=== PATIENT | female | born 1960 | race Caucasian/White ===

== ENCOUNTER 2019-01-09 11:58 | Day surgery (SDC) | payer OTHER, SELFPAY ==
[2019-01-06 12:20] VITALS: BMI 30.7
[2019-01-09] VITALS (16 sets, daily range): BP systolic 127–155; BP diastolic 68–94; PULSE 75–92; RESP 8–20; TEMP 36.2–36.6; O2SAT 94–98; BMI 30.7; BMI 32.1
[2019-01-09] MEDS: LACTATED RINGERS 1,000 ML 100 ML IV ×2 (12:43→16:00)
--- NOTE | 2019-01-09 13:20 | PM.PREOP ---
Pre-operative Note Interval Note History & Physical reviewed/Exam performed by Physician: Yes Changes to H&P: No H&P completed within 30 days and has changed as indicated here:: 01/06/19 out pt note
[2019-01-09] MEDS: CEFAZOLIN 2 GM/100 ML FROZ.PIGGY IV (13:35)
--- NOTE | 2019-01-09 13:58 | SUR.OPER ---
Lithotomy on padded OR bed, head on pillow, arms secured on padded arm boards at <90 degrees abduction. Legs secured in padded yellow fins stirrups.
[2019-01-09] MEDS: BUPIVACAINE 0.5% W/ EPI (PF) VIAL 30 ML INJ (14:02)
--- NOTE | 2019-01-09 14:41 | PM.OP.1 ---
Operative Date/Time/Diagnoses Date of procedure: 01/09/19 Time of procedure: 14:41 Pre-op diagnosis: Stress urinary incontinence and cystocele Post-op diagnosis: same Procedure & Clinicians Procedure: Anterior repair and TVT exact retropubic suburethral sling Same procedure as scheduled: Yes Indications: Stress urinary incontinence and symptomatic cystocele without rectocele or significant uterine prolapse Surgeon: Tiffanie Lopez Click Yes if Unassisted: Yes Anesthesia Type: General Operative Notes Findings: Mild cystocele with hypermobile urethra Closure Type: primary Specimen(s): none sent Prosthetic devices, grafts, tissues, transplants, or devices: TVT exact suburethral sling Estimated Blood Loss (mL): 50 Blood products transfused: none Procedure in detail: Patient was brought to the operating room where she underwent general anesthesia. She was placed in yellowfin stirrups. A check system was reviewed. 2 g of Ancef were in prior to beginning case. Warming was in place. Pulsatile stockings were in place and functional. She was prepped and draped in the usual sterile fashion. The area under the cystocele was injected with dilute solution of lidocaine. An incision was made over the cystocele with the scalpel. The incision was dissected out laterally. The cystocele caliber was decreased with a pursestring suture of 2 0 Vicryl suture. Plicating sutures were performed over the cystocele with 0 Vicryl suture. The vaginal incision was closed with 2 0 Vicryl suture. Next the area of the mid urethra was injected with lidocaine. An incision was made over the mid urethra with a scalpel. The incision was extended laterally. A Benjamin catheter was placed with a catheter guide in place. The suprapubic exit sites were marked with a marking pen. The needles attached to the sling were placed from the bottom up and left in place. The catheter was removed and 300 mL of saline were placed in the bladder and cystoscopy was performed. A 70?? scope followed by a 12?? scope were used to look at the bladder and the urethra was no damage apparent with placement of the needles. Both ureters were seen to be functional. The graft was brought up loosely under the mid urethra. With sharp pressure against the bladder there was some leakage of urine. The plastic sheath was removed. The graft was cut under the skin of the suprapubic sites. The vaginal incision was closed with 2-0 Vicryl suture. Vaginal packing was placed. Patient went to recovery room in good condition. Counts of instruments and sponges were correct. Complications: none Condition: stable Disposition: Acute Care Plan for aftercare: Will remove the vaginal packing a Benjamin catheter in a.m. and check for postvoid residual home after her postvoid residual check
[2019-01-09] MEDS: fentaNYL 100 MCG/2 ML INJ 50 MCG IV ×2 (14:42→14:57)
--- NOTE | 2019-01-09 15:13 | SUR.PHASEI ---
dentures returned to patient (upper); tolerating sips of water well, Pain 1-2; will transport soon, VSS
--- NOTE | 2019-01-09 15:37 | SUR.PHASEI ---
1526 to room 229 , bed down and locked, call light within reach, SCDs on. Clothes in closet. report given, no questions from patient or staff. drowsy, oriented, skin warm and dry, resp even and regular. Report given.
[2019-01-09] MEDS: KETOROLAC 30 MG/ML VIAL IV (18:06)
--- NOTE | 2019-01-09 19:10 | PC.NURSE ---
Addendum entered by Iveth Key R.N. 01/09/19 22:04: Pt med at 5 w/oxycodone w/fair relief. IVF continue as per orders. Abd dsg are saturated w/no leakage. Benjamin cath patent clear urine. Call light w/in reach, bed alarm on for pt safety. Continue w/plan of care. Original Note: Pt awake, visiting w/family. IVF infusing via pump as per orders. Abdomen soft, tender Benjamin cath patent clear yellow urine. Med at 1800 w/toredol for discomfort w/good relief. Call light w/in reach, family in room.
[2019-01-09] MEDS: HYDROCODONE/ACET 5/325 TABLET 2 TAB PO (20:48)
[2019-01-10] VITALS: BP 118/60; PULSE 94; RESP 18; TEMP 36.4; O2SAT 95
[2019-01-10] MEDS: LACTATED RINGERS 1,000 ML 100 ML IV (00:17)
[2019-01-10] MEDS: HYDROCODONE/ACET 5/325 TABLET 2 TAB PO ×4 (00:18→13:17)
--- NOTE | 2019-01-10 02:36 | PC.NURSE ---
Addendum entered by Nora Luu R.N. 01/10/19 06:21: Dr Lopez notified of kennedy removal and will be in to removing packing. Original Note: Addendum entered by Nora Luu R.N. 01/10/19 06:11: Misinterpreted orders and d/c'd kennedy but not packing this AM. MD will be notified. Original Note: Shift Note: Received pt from evening shift. During assessment found lower abdominal dressings to be completely saturated and leaking into groin folds. Tegaderm had come loose and was no longer occlusive. This RN wiped up excess serosanginous fluids from pt and removed tegaderm dressing. Replaced both dressings with dry folded 2x2's and covered with individual tegaderms. Pt tolerated well.
[2019-01-10 03:55] VITALS: BP 117/57; PULSE 86; RESP 17; TEMP 36.4; O2SAT 96
[2019-01-10 05:51] LABS: Add Manual Diff / Slide Review NO; Basophils Absolute Auto 0 /uL (0-100); Basophils Percent Auto 0.2 % (0-2); Eosinophils Absolute Auto 0 /uL (0-450); Hematocrit 38.2 % (36-46); Hemoglobin 12.4 g/dL (12.0-16.0); Lymphocytes Absolute Auto 1200 /uL (1100-4500); Lymphocytes Percent Auto 8.4 % (25-40); Mean Corpuscular HGB Conc 32.5 % (30-36); Mean Corpuscular Hemoglobin 26.7 PG (26-34); Mean Corpuscular Volume 82.1 fL (80-100); Monocytes Absolute Auto 900 /uL (0-900); Monocytes Percent Auto 6.3 % (3-14); Neutrophils Absolute Auto 12600 /uL (1500-7000); Neutrophils Percent Auto 85.1 % (50-75); Platelet Count 263 X10^3/uL (150-400); Red Blood Cell Count 4.66 X10^6/uL (4.0-5.2); Red Cell Distribution Width 13.4 % (11.6-14.8); White Blood Cell Count 14.8 X10^3/uL (4.5-11.0)
[2019-01-10 08:00] VITALS: BP 127/74; PULSE 79; RESP 16; TEMP 36.7; O2SAT 97
--- NOTE | 2019-01-10 08:56 | PM.DS.1 ---
History of Present Illness Date Patient Seen: 01/10/19 Time Patient Seen: 08:56 Chief complaint: [id number] ANTERIOR REPAIR/TVT EXACT SLING Narrative: Patient is postoperative day #1 anterior repair, TVT exact retropubic suburethral sling for stress urinary incontinence and symptomatic cystocele. the patient is sore but otherwise is pain is okay. She was able to urinate after removal of her Benjamin catheter. The patient's suprapubic dressings are dry. The patient's vaginal packing was removed and had appropriate amount blood on it. Discharge Providers Discharge Date: 01/10/19 Primary care physician: Kevin Jaramillo DO Discharge provider: Tiffanie Lopez MD Summary Discharge Diagnosis: Symptomatic cystocele and stress urinary incontinence Hospital Course: patient underwent a anterior repair and TVT exact retropubic suburethral sling on 01/09/2019. Patient did well postoperatively. She eventually did pass her bladder trial with less than 100 cc on postvoid residual. Status at Discharge Functional status at discharge: independent ambulation Overall status at discharge: patient is progressing back to baseline Exam Vital Signs (past 8 hours): - 01/10/19 03:55 01/10/19 08:00 Temperature 97.6 F 98.0 F Pulse Rate 86 79 Respiratory Rate 17 16 Blood Pressure 117/57 L 127/74 Pulse Oximetry 96 97 Oxygen Delivery Method Room Air Narrative Exam Narrative: Abdomen is soft, nontender. Suprapubic dressings are dry. Appropriate vaginal bleeding. Extremities nontender Objective Labs Result Diagrams: 01/10/19 04:58 Labs: Laboratory Results - last 24 hr 01/10/19 04:58 WBC 14.8 H RBC 4.66 Hgb 12.4 Hct 38.2 MCV 82.1 MCH 26.7 MCHC 32.5 RDW 13.4 Plt Count 263 Neut % (Auto) 85.1 H Lymph % (Auto) 8.4 L [place] % (Auto) 6.3 Eos % (Auto) 0.0 L Baso % (Auto) 0.2 Neut # (Auto) 57764 H Lymph # (Auto) 1200 [place] # (Auto) 900 Eos # (Auto) 0 Baso # (Auto) 0 Discharge Plan Discharge Plan Patient Disposition: Home Discharge Med Rec/Prescriptions Prescriptions: Continued estradiol 0.01 % (0.1 mg/gram) cream See Rx Instructions VAG DAILY Qty: 42.5 RF: 0 omeprazole 20 mg capsule,delayed release(DR/EC) 20 mg PO .COMPLEX PRN (Reason: GI Upset) RF: 0 albuterol sulfate 90 mcg/actuation HFA aerosol inhaler 1 puff INHALATION Q6H PRN (Reason: SOB) RF: 0 hydrocodone-acetaminophen 5-325 mg tablet 2 tab PO Q4-6H PRN (Reason: pain) Qty: 30 RF: 0 Follow up/Referrals: Kevin Jaramillo DO [Primary Care Provider] - Tiffanie Lopez MD [Physician] - 01/25/19 10:30 am ( appointment already made) Discharge Orders: Discharge (Order); Ordered 01/10/19 Ordered By: Tiffanie Lopez Provider Discharge Instructions Diet: Regular Activity: do not lift over 20 lb Skin/Wound/Dressing Care Report to your healthcare provider any signs of infection, such as:: chills, fever and increased pain Dressing: remove suprapubic dressings this evening Discharge Data Primary Care Provider: Kevin Jaramillo Attending Provider: Tiffanie Lopez Discharges patient from system. Discharge Date/Time: 01/10/19 13:45
--- NOTE | 2019-01-10 09:02 | P.DS_ITS ---
History of Present Illness Date Patient Seen: 01/10/19 Time Patient Seen: 08:56 Chief complaint: [id number] ANTERIOR REPAIR/TVT EXACT SLING Narrative: Patient is postoperative day #1 anterior repair, TVT exact retropubic suburethral sling for stress urinary incontinence and symptomatic c ystocele. the patient is sore but otherwise is pain is okay. She was able to urinate after removal of her Benjamin catheter. The patient's suprapubic dressings are dry. The patient's vaginal packing was removed and had appropriate amount blood on it. Discharge Providers Discharge Date: 01/10/19 Primary care physician: Kevin Jaramillo, Discharge provider: Tiffanie Lopez MD Summary Discharge Diagnosis: Symptomatic cystocele and stress urinary incontinence Hospital Course: patient underwent a anterior repair and TVT exact retropubic suburethral sling on 01/09/2019. Patient did well postoperatively. She eventually did pass her bladder trial with less than 100 cc on postvoid residual. Status at Discharge Functional status at discharge: independent ambulation Overall status at discharge: patient is progressing back to baseline Exam Vital Signs (past 8 hours): - 01/10/19 03:55 01/10/19 08:00 Temperature 97.6 F 98.0 F Pulse Rate 86 79 Respiratory Rate 17 16 Blood Pressure 117/57 L 127/74 Pulse Oximetry 96 97 Oxygen Delivery Method Room Air Narrative Exam Narrative: Abdomen is soft, nontender. Suprapubic dressings are dry. Appropriate vaginal bleeding. Extremities nontender Objective Labs Result Diagrams: 01/10/19 04:58 Labs: Laboratory Results - last 24 hr 01/10/19 04:58 WBC 14.8 H RBC 4.66 Hgb 12.4 Hct 38.2 MCV 82.1 MCH 26.7 MCHC 32.5 RDW 13.4 Plt Count 263 Neut % (Auto) 85.1 H Lymph % (Auto) 8.4 L [place] % (Auto) 6.3 Eos % (Auto) 0.0 L Baso % (Auto) 0.2 Neut # (Auto) 85502 H Lymph # (Auto) 1200 [place] # (Auto) 900 Eos # (Auto) 0 Baso # (Auto) 0 Discharge Plan Discharge Plan Patient Disposition: Home Discharge Med Rec/Prescriptions Prescriptions: Continued estradiol 0.01 % (0.1 mg/gram) cream See Rx Instructions VAG DAILY Qty: 42.5 RF: 0 omeprazole 20 mg capsule,delayed release(DR/EC) 20 mg PO .COMPLEX PRN (Reason: GI Upset) RF: 0 albuterol sulfate 90 mcg/actuation HFA aerosol inhaler 1 puff INHALATION Q6H PRN (Reason: SOB) RF: 0 hydrocodone-acetaminophen 5-325 mg tablet 2 tab PO Q4-6H PRN (Reason: pain) Qty: 30 RF: 0 Follow up/Referrals: Kevin Jaramillo DO [Primary Care Provider] - Tiffanie Lopez MD [Physician] - 01/25/19 10:30 am ( appointment already made) Discharge Orders: Discharge (Order); Ordered 01/10/19 Ordered By: Tiffanie Lopez Provider Discharge Instructions Diet: Regular Activity: do not lift over 20 lb Skin/Wound/Dressing Care Report to your healthcare provider any signs of infection, such as:: chills, fever and increased pain Dressing: remove suprapubic dressings this evening Discharge Data Primary Care Provider: Kevin Jaramillo Attending Provider: Tiffanie Lopez Discharges patient from system. Discharge Date/Time: 01/10/19 13:45
[2019-01-10 12:32] VITALS: BP 126/51; PULSE 72; RESP 16; TEMP 36.5; O2SAT 98
--- NOTE | 2019-01-10 13:04 | CM.DANOTE ---
Discharge Planning/Care Management DCP: assessment: case received, EMR reviewed, d/c to home order noted and met with pt. Introduced self and role. Pt is sitting in bed, eating lunch. Multiple family members in the room. Pt is a 58 year old female who admitted yesterday to care of Dr. Lopez for a planned gynecological surgery. She says she is aware of the d/c order for today but she has not seen the nurse (MERCEDES Salguero) yet. Spoke then with MERCEDES Salguero. She states that Dr. Lopez did tell her she was putting the d/c order in but that the pt would need to void first. She noted a kennedy catheter may have to be placed and at this point it is unclear if pt will go home today. Noemy has now reported that pt did void and with minimal urine left with PVR. She has updated Dr. Lopez by phone and pt will d/c home as soon as all paperwork is completed. CM Discharge Assessment Start: 01/10/19 13:00 Freq: Status: Active Protocol: Document 01/10/19 13:02 ITV (Rec: 01/10/19 13:03 ITV [id number]) Discharge Planning Assessment Advance Directives? No Advance Directives on File No History Provided By Patient Medical Record Household Members none Independent with ADL's Yes Is patient alert and oriented? Yes Review Status In Process Next Review Type Continued Stay Review Document 01/10/19 13:03 ITV (Rec: 01/10/19 13:03 ITV [email or web address]) Discharge Planning Assessment Advance Directives? No Advance Directives on File No History Provided By Patient Medical Record Household Members none Independent with ADL's Yes Is patient alert and oriented? Yes Review Status In Process Next Review Type Continued Stay Review Pre-Anesthesia Assessment Start: 01/06/19 12:20 Freq: Status: Complete Protocol: Document 01/06/19 12:20 CAB (Rec: 01/06/19 12:27 CAB [id number]) Pre-Anesthesia Assessment Patient Information Reviewed Via Chart Review Seen Specialist in Last 12 Months Yes Specialist Seen Diesel Stationary Engineer Primary Language Iranian Cloth Burler Required No Height 170.18 cm Weight 88.904 kg Body Mass Index (BMI) 30.7 Barriers to Learning None Hx Anesthesia Reactions No Anesthesia Review Requested No Electrical & Instrumentation Supervisor No Smoking Status Former smoker Pain Present Pain Reported History of Falling (Recent or History of No ) Patient is completely paralyzed or No completely immobile Mental Status Oriented to own ability Hx Sleep Apnea Yes: Unknown if uses CPAP Currently Taking a Beta Tanya No Has a Mechanic Foreman No Cardiac Testing No Hx Pacemaker/ICD No Pacemaker Rep Required? No Cardiac Clearance Received Not Applicable Bladder Pattern Incontinent Urinary Catheter Present No Hx Urinary Self Catheterization No Diabetes No Patient No Lactating No Patient Discharge Plan Description Return Home
--- NOTE | 2019-01-10 13:31 | PC.NURSE ---
1300 Pt voided 400 ml urine, then post void bladder scanned for [address] Lopez notified, states to go ahead and DC Pt to home.
== END 2019-01-10 13:45 | disposition home or self-care (01) ==
LOC: OR 12:01 → AC 15:39
PROVIDERS: PCP Emergency Medicine; Visit Provider Specialist
PROC: (CPT 57240; principal; 2019-01-09 13:30)
PROC: 0TSD0ZZ Reposition Urethra, Open Approach (ICD-10-PCS; CPT 57240; 2019-01-09 13:30)
DX: N39.3 Stress incontinence (female) (male) (principal); N81.10 Cystocele, unspecified; N36.41 Hypermobility of urethra; Z87.891 Personal history of nicotine dependence
CPT/HCPCS: 57240; 57288; 36415; 85025; 94762; C1771; J0690; J1100; J1885; J2250; J2405; J2704; J3010

== ENCOUNTER → 2019-04-06 15:24 | Outpatient (CLI) | payer OTHER, SELFPAY ==
[2019-01-09 17:28] VITALS: BMI 32.1
--- NOTE | 2019-04-06 15:27 | DI.RAD.S_ITS ---
PROCEDURE: XR ANKLE RT MIN 3V INDICATIONS: twisted ankle TECHNIQUE: 3 views of the ankle were acquired. COMPARISON: None. FINDINGS: Bones: No fractures or dislocations. Ankle mortise is normally aligned. No suspicious bony lesions. Soft tissues: No tibiotalar joint effusion. Achilles tendon appears normal except for a small amount of calcific tendinitis at the insertion at the posterior calcaneus. IMPRESSION: Normal for age, source of current ankle pain after trauma symptoms is not seen. Note is made of a small amount of calcific tendinitis at the Achilles tendon insertion on the posterior calcaneus. Dictated by: Jude Arita M.D. on 04/06/2019 at 16:46 Approved by: Jude Arita M.D. on 04/06/2019 at 16:47
== END ==
PROVIDERS: Visit Provider Physician Assistant
DX: S93.401A Sprain of unspecified ligament of right ankle, initial encounter (principal); M76.61 Achilles tendinitis, right leg; X58.XXXA Exposure to other specified factors, initial encounter
CPT/HCPCS: 73610

== ENCOUNTER 2019-06-16 07:30 | Outpatient (RCR) | payer OTHER, SELFPAY ==
[2019-01-09 17:28] VITALS: BMI 32.1
--- NOTE | 2019-04-10 09:36 | PT.OIE ---
Current Diagnoses Other female genital prolapse (04/10/19) Unspecified urinary incontinence (04/10/19) Past Medical History (Last Updated 01/06/19 @ 12:26 by Klarissa Girard RN) Cystocele (Acute) Asthma (Chronic ~1997) Chronic back pain (Chronic) Foot pain (Chronic) Headache (Chronic) Herpes (Chronic ~1998) Recurrent sinusitis (Chronic) Seasonal allergies (Chronic ~1997) Skin cancer (Chronic) Sleep apnea (Chronic) Tinnitus (Chronic ~2012) Chicken pox (Resolved) Measles (Resolved) Mumps (Resolved) Past Surgical History (Last Updated 12/14/18 @ 20:30 by Melinda Griffith) Anesthesia (Resolved) Deviated septum (Resolved ~1979) History of foot surgery (Resolved) History of tubal ligation (Resolved ~1985) Provider Visit Care Team Role Provider Type Maria Teresa Woodward DO Primary Care Provider Non-Staff Specialty: Medical Address: [address] [place] [address], [phone] Email: Tiffanie Lopez MD Attending Provider Physician Specialty: LINOTYPE MACHINIST Address: [address] [place] [address], [id number] Email: [email or web address] Physical Therapy Initial Evaluation PT-OP-A Visit Information Start: 04/10/19 06:44 Freq: Status: Active Protocol: Document 04/10/19 07:30 AMB (Rec: 04/11/19 07:29 AMB [email or web address]) Out-Patient Physical Therapy Visit Information Visit Information Visit Type Initial Evaluation Visit Start Time 07:30 Visit Stop Time 08:15 Total Visit Minutes 45 Visit Number 1 Evaluation Information Evaluation Date 04/10/19 PT-OP-B Current Condition Start: 04/10/19 06:44 Freq: Status: Active Protocol: Document 04/10/19 07:30 AMB (Rec: 04/11/19 07:29 AMB [email or web address]) Current Condition History of Current Condition Onset Date 01/09/19 Current Complaints urinary incontinence s/p anterior repair urethral sling History of Current Condition Sherine had been told she had a cystocele years ago, but began to notice more pressure and felt it was painful. She has a history of 4 children all vaginal deliveries with some amount of tearing with her first, she is unsure how much. She is post menopausal now, and denies sexual activity for the past 20 years . 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 She tends to hover on public toilets (including the toilet at work). She had surgery on 01/09/19, and since that time her pain and pressure have improved significanty. She is does feel that it is difficult to fully void now, and has noticed more leaking when she stands up from the toilet. She feels that it takes about 30 seconds to fully void her bladder and that at the end it is a trickle that keeps coming. She does not want to wait a full 30 seconds to void her bladder. Prior Treatments and Tests Prior pessary, then had surgery with Dr. Lopez- anterior vaginal repair with TVT exact retropubic suburethral sling. Treatment Goals Patient/Caregiver Goals Void urine without leaking, be able to exercise without fear of prolapse. Personal Factors Other Personal Factors That May Effect History of back pain Therapy/Recovery PT-OP-C Subjective Start: 04/10/19 06:44 Freq: Status: Active Protocol: Document 04/10/19 07:30 AMB (Rec: 04/11/19 07:29 AMB [email or web address]) Patient Questionnaires Pelvic Pain and Urgency/Frequency Patient Symptom Scale Pelvic Pain Score 10 PT-OP-I Pelvic Floor Start: 04/10/19 06:44 Freq: Status: Active Protocol: Document 04/10/19 07:30 AMB (Rec: 04/10/19 08:47 AMB [email or web address]) Pelvic Floor Assessment Urine Pelvic Floor Surgery Yes Urinary Symptoms Urge Sensation Prolapse Incomplete Emptying Leakage Size Small Other Leakage Causes moving from sit to stand, phyllis after just voiding urine Leaks Per Day 3 Voiding Frequency 5-8 Nocturia 2 Urine Pad Type Panty Liner Pelvic Clock Pelvic Clock 3-6 Tightness Pelvic Clock 6-9 Tightness Pelvic Clock Other Redness at vestibule. Small scar at perineum with tightness and tenderness. No significant tenderness with palpation at obteratur internus or levator ani bilaterally. Prolapse Cystocele Grade 1 Prolapse Comments Difficulty with bearing down. Perineal Descent Resting Absent Contraction Ability Voluntary Contraction Weak Voluntary Relaxation Weak Manual Muscle Testing Left 1 Manual Muscle Testing Right 1 Manual Muscle Testing Anterior 1 Manual Muscle Testing Posterior 3 Comments Pelvic Floor Comments Sherine with an easier time jovan posterior pelvic floor. PT-OP-T Assessment and Plan Start: 04/10/19 06:44 Freq: Status: Active Protocol: Document 04/10/19 07:30 AMB (Rec: 04/15/19 09:36 AMB [email or web address]) Physical Therapy Assessment Rehab Potential Rehabilitation Potential Good Evaluation Complexity Number of Personal Factors/Comorbidities 1-2 Number of Body Systems Impaired 1-2 Clinical Presentation at Evaluation Stable Impairments Impairments Functional Activities Strength Goals Two Impairment incontinence Short Term Goal (STG) Sherine will fully void her bladder so that she does not leak upon standing from the toilet. STG Duration 4 weeks Turpentiner Goal (LTG) Sherine will walk to the toilet calmly without leaking, and fully relax her pelvic floor before voiding urine. LTG Duration 8 weeks One Impairment pelvic floor strength Short Term Goal (STG) Sherine will improve her pelvic floor strength to at least 3/ 5 in all planes. STG Duration 4 weeks Fpc Goal (LTG) Sherine will perform a pelvic floor contraction in standing so that she can safely lift 20 pounds. LTG Duration 8 weeks Assessment Summary Assessment Sherine presents to physical therapy s/p A&P repair and urethral sling. This significantly improved her symptoms of prolapse, but she is having a harder time fully voiding urine. This is exacerbated by her tendency to hover over the toilet at work , not allowing her pelvic floor to fully relax. Sherine will benefit from physical therapy for instruction in both behavioral changes to make sure she is fully voiding her bladder, and then pelvic floor strengthening, especially considering her goal of returning to exercise. Physical Therapy Plan Frequency and Duration Frequency of Treatment 1x/Week Duration of Treatment 8 weeks Plan of Care Start Date 04/10/19 Plan of Care End Date 06/05/19 Therapeutic Interventions Therapeutic Interventions Home Exercise Program Manual Therapy Neuromuscular Re-education Self-Care/Home Management Therapeutic Activities Therapeutic Exercises Modalities Biofeedback Electric Stimulation Next Visit Focus/Plan Next Note Type Treatment Note Next Visit Plan Urge reduction, full emptying strategies, then sEMG analysis
--- NOTE | 2019-04-10 09:38 | PT.OPPOC ---
Addendum entered and electronically signed by Yanira Campos, PT 08/19/20 15:19: Resending plan of care. Original Note: Addendum entered and electronically signed by Yanira Campos, PT 08/19/20 15:18: Re-sending plan of care. Original Note: Current Diagnoses Other female genital prolapse (04/10/19) Unspecified urinary incontinence (04/10/19) Provider Visit Care Team Role Provider Type Maria Teresa Woodward DO Primary Care Provider Non-Staff Specialty: Medical Address: [address] [place] [address], [phone] Email: Tiffanie Lopez MD Attending Provider Physician Specialty: VALET PARKING ATTENDANT Address: [address] [place] [address], [id number] Email: [email or web address] Plan Of Care PT-OP-T Assessment and Plan Start: 04/10/19 06:44 Freq: Status: Active Protocol: Document 04/10/19 07:30 AMB (Rec: 04/15/19 09:36 AMB [email or web address]) Physical Therapy Assessment Rehab Potential Rehabilitation Potential Good Evaluation Complexity Number of Personal Factors/Comorbidities 1-2 Number of Body Systems Impaired 1-2 Clinical Presentation at Evaluation Stable Impairments Impairments Functional Activities Strength Goals Two Impairment incontinence Short Term Goal (STG) Sherine will fully void her bladder so that she does not leak upon standing from the toilet. STG Duration 4 weeks [facility] Goal (LTG) Sherine will walk to the toilet calmly without leaking, and fully relax her pelvic floor before voiding urine. LTG Duration 8 weeks One Impairment pelvic floor strength Short Term Goal (STG) Sherine will improve her pelvic floor strength to at least 3/ 5 in all planes. 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 LTG Duration 8 weeks Assessment Summary Assessment Sherine presents to physical therapy s/p A&P repair and urethral sling. This significantly improved her symptoms of prolapse, but she is having a harder time fully voiding urine. This is exacerbated by her tendency to hover over the toilet at work , not allowing her pelvic floor to fully relax. Sherine will benefit from physical therapy for instruction in both behavioral changes to make sure she is fully voiding her bladder, and then pelvic floor strengthening, especially considering her goal of returning to exercise. Physical Therapy Plan Frequency and Duration Frequency of Treatment 1x/Week Duration of Treatment 8 weeks Plan of Care Start Date 04/10/19 Plan of Care End Date 06/05/19 Therapeutic Interventions Therapeutic Interventions Home Exercise Program Manual Therapy Neuromuscular Re-education Self-Care/Home Management Therapeutic Activities Therapeutic Exercises Modalities Biofeedback Electric Stimulation Next Visit Focus/Plan Next Note Type Treatment Note Next Visit Plan Urge reduction, full emptying strategies, then sEMG analysis Plan of Care Dates Plan of Care Start Date 04/10/19 Plan of Care End Date 06/05/19 Please Sign and Return: I have reviewed this Plan of Care and certify that the skilled therapy services above are required to meet the patient?s needs. Physician Signature Date Printed Name and Credentials Clinical Instructor Signature Printed Name and Credentials
--- NOTE | 2019-04-17 08:29 | PT.OTN ---
Current Diagnoses Other female genital prolapse (04/17/19) Unspecified urinary incontinence (04/17/19) Physical Therapy Treatment Note PT-OP-A Visit Information Start: 04/10/19 06:44 Freq: Status: Active Protocol: Document 04/17/19 07:30 AMB (Rec: 04/17/19 08:29 AMB [id number]) Out-Patient Physical Therapy Visit Information Visit Information Visit Type Treatment Note Visit Start Time 07:30 Visit Stop Time 08:15 Total Visit Minutes 45 Visit Number 2 PT-OP-B Current Condition Start: 04/10/19 06:44 Freq: Status: Active Protocol: Document 04/10/19 07:30 AMB (Rec: 04/11/19 07:29 AMB [email or web address]) Current Condition History of Current Condition Onset Date 01/09/19 Current Complaints urinary incontinence s/p anterior repair urethral sling History of Current Condition Sherine had been told she had a cystocele years ago, but began to notice more pressure and felt it was painful. She has a history of 4 children all vaginal deliveries with some amount of tearing with her first, she is unsure how much. She is post menopausal now, and denies sexual activity for the past 20 years . 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 She tends to hover on public toilets (including the toilet at work). She had surgery on 01/09/19, and since that time her pain and pressure have improved significanty. She is does feel that it is difficult to fully void now, and has noticed more leaking when she stands up from the toilet. She feels that it takes about 30 seconds to fully void her bladder and that at the end it is a trickle that keeps coming. She does not want to wait a full 30 seconds to void her bladder. Prior Treatments and Tests Prior pessary, then had surgery with Dr. Lopez- anterior vaginal repair with TVT exact retropubic suburethral sling. Treatment Goals Patient/Caregiver Goals Void urine without leaking, be able to exercise without fear of prolapse. Personal Factors Other Personal Factors That May Effect History of back pain Therapy/Recovery PT-OP-C Subjective Start: 04/10/19 06:44 Freq: Status: Active Protocol: Document 04/17/19 07:30 AMB (Rec: 04/17/19 08:29 AMB [id number]) OP-PT Subjective Patient Comments Patient Comments Sherine is doing about the same , her back has been bothering her PT-OP-I Pelvic Floor Start: 04/10/19 06:44 Freq: Status: Active Protocol: Document 04/10/19 07:30 AMB (Rec: 04/10/19 08:47 AMB [email or web address]) Pelvic Floor Assessment Urine Pelvic Floor Surgery Yes Urinary Symptoms Urge Sensation Prolapse Incomplete Emptying Leakage Size Small Other Leakage Causes moving from sit to stand, phyllis after just voiding urine Leaks Per Day 3 Voiding Frequency 5-8 Nocturia 2 Urine Pad Type Panty Liner Pelvic Clock Pelvic Clock 3-6 Tightness Pelvic Clock 6-9 Tightness Pelvic Clock Other Redness at vestibule. Small scar at perineum with tightness and tenderness. No significant tenderness with palpation at obteratur internus or levator ani bilaterally. Prolapse Cystocele Grade 1 Prolapse Comments Difficulty with bearing down. Perineal Descent Resting Absent Contraction Ability Voluntary Contraction Weak Voluntary Relaxation Weak Manual Muscle Testing Left 1 Manual Muscle Testing Right 1 Manual Muscle Testing Anterior 1 Manual Muscle Testing Posterior 3 Comments Pelvic Floor Comments Sherine with an easier time jovan posterior pelvic floor. PT-OP-Q Treatments Start: 04/10/19 06:44 Freq: Status: Active Protocol: Document 04/17/19 07:30 AMB (Rec: 04/17/19 08:29 AMB [id number]) Neuro Re-Education Treatment Other Activities 1 Details sEMG Comments quick flicks, long holds 5 and 10 seconds, adductor squeeze. Difficulty holding for 10 seconds. Good relaxation, max 19, but avg 7 because of difficulty holding. PT-OP-T Assessment and Plan Start: 04/10/19 06:44 Freq: Status: Active Protocol: Document 04/17/19 07:30 AMB (Rec: 04/17/19 08:29 AMB [id number]) Physical Therapy Assessment Assessment Summary Assessment Encouraged Sherine with full relaxation while on toilet. Sherine had good initial strength but fatigues quickly. Physical Therapy Plan Next Visit Focus/Plan Next Note Type Treatment Note Next Visit Plan Progress urge reduction, work into sitting as this is more comfortable for pt's back
--- NOTE | 2019-05-01 16:32 | PT.OTN ---
Current Diagnoses Other female genital prolapse (05/01/19) Unspecified urinary incontinence (05/01/19) Physical Therapy Treatment Note PT-OP-A Visit Information Start: 04/10/19 06:44 Freq: Status: Active Protocol: Document 05/01/19 07:30 AMB (Rec: 05/01/19 08:15 AMB [id number]) Out-Patient Physical Therapy Visit Information Visit Information Visit Type Treatment Note Visit Start Time 07:30 Visit Stop Time 08:15 Total Visit Minutes 45 Visit Number 3 PT-OP-B Current Condition Start: 04/10/19 06:44 Freq: Status: Active Protocol: Document 04/10/19 07:30 AMB (Rec: 04/11/19 07:29 AMB [email or web address]) Current Condition History of Current Condition Onset Date 01/09/19 Current Complaints urinary incontinence s/p anterior repair urethral sling History of Current Condition Sherine had been told she had a cystocele years ago, but began to notice more pressure and felt it was painful. She has a history of 4 children all vaginal deliveries with some amount of tearing with her first, she is unsure how much. She is post menopausal now, and denies sexual activity for the past 20 years . 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 She tends to hover on public toilets (including the toilet at work). She had surgery on 01/09/19, and since that time her pain and pressure have improved significanty. She is does feel that it is difficult to fully void now, and has noticed more leaking when she stands up from the toilet. She feels that it takes about 30 seconds to fully void her bladder and that at the end it is a trickle that keeps coming. She does not want to wait a full 30 seconds to void her bladder. Prior Treatments and Tests Prior pessary, then had surgery with Dr. Lopez- anterior vaginal repair with TVT exact retropubic suburethral sling. Treatment Goals Patient/Caregiver Goals Void urine without leaking, be able to exercise without fear of prolapse. Personal Factors Other Personal Factors That May Effect History of back pain Therapy/Recovery PT-OP-C Subjective Start: 04/10/19 06:44 Freq: Status: Active Protocol: Document 05/01/19 07:30 AMB (Rec: 05/01/19 08:15 AMB [id number]) OP-PT Subjective Patient Comments Patient Comments Sherine feels that she is leaking less, but still noticing leaking. She has been doing her exercises. PT-OP-I Pelvic Floor Start: 04/10/19 06:44 Freq: Status: Active Protocol: Document 04/10/19 07:30 AMB (Rec: 04/10/19 08:47 AMB [email or web address]) Pelvic Floor Assessment Urine Pelvic Floor Surgery Yes Urinary Symptoms Urge Sensation Prolapse Incomplete Emptying Leakage Size Small Other Leakage Causes moving from sit to stand, phyllis after just voiding urine Leaks Per Day 3 Voiding Frequency 5-8 Nocturia 2 Urine Pad Type Panty Liner Pelvic Clock Pelvic Clock 3-6 Tightness Pelvic Clock 6-9 Tightness Pelvic Clock Other Redness at vestibule. Small scar at perineum with tightness and tenderness. No significant tenderness with palpation at obteratur internus or levator ani bilaterally. Prolapse Cystocele Grade 1 Prolapse Comments Difficulty with bearing down. Perineal Descent Resting Absent Contraction Ability Voluntary Contraction Weak Voluntary Relaxation Weak Manual Muscle Testing Left 1 Manual Muscle Testing Right 1 Manual Muscle Testing Anterior 1 Manual Muscle Testing Posterior 3 Comments Pelvic Floor Comments Sherine with an easier time jovan posterior pelvic floor. PT-OP-Q Treatments Start: 04/10/19 06:44 Freq: Status: Active Protocol: Document 05/01/19 07:30 AMB (Rec: 05/01/19 16:32 AMB [email or web address]) Therapeutic Exercises Sitting Exercises 3 Sitting Exercise Name seated quick flicks/ long holds Comments 10 ea 1 Sitting Exercise Name sitting roll in roll out Resistance #3 band Comments 10 ea Standing Exercises 1 Standing Exercise Name standing quick flicks/long holds Comments 10 holds, 5 sec for long holds PT-OP-T Assessment and Plan Start: 04/10/19 06:44 Freq: Status: Active Protocol: Document 05/01/19 07:30 AMB (Rec: 05/01/19 16:32 AMB [email or web address]) Physical Therapy Assessment Assessment Summary Assessment Sherine is showing better tolerance with sitting/ standing postures, but continues to have difficulty stabilizing pelvic floor while moving. Physical Therapy Plan Next Visit Focus/Plan Next Note Type Treatment Note Next Visit Plan Progress into standing, urge reduction
--- NOTE | 2019-05-08 09:23 | PT.OTN ---
Current Diagnoses Other female genital prolapse (05/08/19) Unspecified urinary incontinence (05/08/19) Physical Therapy Treatment Note PT-OP-A Visit Information Start: 04/10/19 06:44 Freq: Status: Active Protocol: Document 05/08/19 07:30 AMB (Rec: 05/08/19 09:23 AMB [email or web address]) Out-Patient Physical Therapy Visit Information Visit Information Visit Type Treatment Note Visit Start Time 07:30 Visit Stop Time 08:15 Total Visit Minutes 45 Visit Number 4 PT-OP-B Current Condition Start: 04/10/19 06:44 Freq: Status: Active Protocol: Document 04/10/19 07:30 AMB (Rec: 04/11/19 07:29 AMB [email or web address]) Current Condition History of Current Condition Onset Date 01/09/19 Current Complaints urinary incontinence s/p anterior repair urethral sling History of Current Condition Sherine had been told she had a cystocele years ago, but began to notice more pressure and felt it was painful. She has a history of 4 children all vaginal deliveries with some amount of tearing with her first, she is unsure how much. She is post menopausal now, and denies sexual activity for the past 20 years . 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 She tends to hover on public toilets (including the toilet at work). She had surgery on 01/09/19, and since that time her pain and pressure have improved significanty. She is does feel that it is difficult to fully void now, and has noticed more leaking when she stands up from the toilet. She feels that it takes about 30 seconds to fully void her bladder and that at the end it is a trickle that keeps coming. She does not want to wait a full 30 seconds to void her bladder. Prior Treatments and Tests Prior pessary, then had surgery with Dr. Lopez- anterior vaginal repair with TVT exact retropubic suburethral sling. Treatment Goals Patient/Caregiver Goals Void urine without leaking, be able to exercise without fear of prolapse. Personal Factors Other Personal Factors That May Effect History of back pain Therapy/Recovery PT-OP-C Subjective Start: 04/10/19 06:44 Freq: Status: Active Protocol: Document 05/08/19 07:30 AMB (Rec: 05/08/19 09:23 AMB [email or web address]) OP-PT Subjective Patient Comments Patient Comments Pt feels that she may have worsened her surgery. PT-OP-I Pelvic Floor Start: 04/10/19 06:44 Freq: Status: Active Protocol: Document 04/10/19 07:30 AMB (Rec: 04/10/19 08:47 AMB [email or web address]) Pelvic Floor Assessment Urine Pelvic Floor Surgery Yes Urinary Symptoms Urge Sensation Prolapse Incomplete Emptying Leakage Size Small Other Leakage Causes moving from sit to stand, phyllis after just voiding urine Leaks Per Day 3 Voiding Frequency 5-8 Nocturia 2 Urine Pad Type Panty Liner Pelvic Clock Pelvic Clock 3-6 Tightness Pelvic Clock 6-9 Tightness Pelvic Clock Other Redness at vestibule. Small scar at perineum with tightness and tenderness. No significant tenderness with palpation at obteratur internus or levator ani bilaterally. Prolapse Cystocele Grade 1 Prolapse Comments Difficulty with bearing down. Perineal Descent Resting Absent Contraction Ability Voluntary Contraction Weak Voluntary Relaxation Weak Manual Muscle Testing Left 1 Manual Muscle Testing Right 1 Manual Muscle Testing Anterior 1 Manual Muscle Testing Posterior 3 Comments Pelvic Floor Comments Sherine with an easier time jovan posterior pelvic floor. PT-OP-Q Treatments Start: 04/10/19 06:44 Freq: Status: Active Protocol: Document 05/08/19 07:30 AMB (Rec: 05/08/19 09:23 AMB [email or web address]) Therapeutic Exercises Supine Exercises 1 Supine Exercise Name quick flicks/long holds Comments with legs elevated on bolsters , educated in breathing, pf contract for lift PT-OP-T Assessment and Plan Start: 04/10/19 06:44 Freq: Status: Active Protocol: Document 05/08/19 07:30 AMB (Rec: 05/08/19 09:23 AMB [email or web address]) Physical Therapy Assessment Assessment Summary Assessment Sherine is very concerned about worsening prolapse today, but wants to hold off on internal exam to give her body more time to get the bladder back up there, encouraged in gravity elimitated positioning . Physical Therapy Plan Next Visit Focus/Plan Next Note Type Treatment Note Next Visit Plan Re-evaluate internal exam if pt continues to feel increased pressure
--- NOTE | 2019-05-22 08:26 | PT.OTN ---
Current Diagnoses Other female genital prolapse (05/22/19) Unspecified urinary incontinence (05/22/19) Physical Therapy Treatment Note PT-OP-A Visit Information Start: 04/10/19 06:44 Freq: Status: Active Protocol: Document 05/22/19 07:30 AMB (Rec: 05/22/19 07:48 AMB [id number]) Out-Patient Physical Therapy Visit Information Visit Information Visit Type Treatment Note Visit Start Time 07:30 Visit Stop Time 08:15 Total Visit Minutes 45 Visit Number 5 PT-OP-B Current Condition Start: 04/10/19 06:44 Freq: Status: Active Protocol: Document 04/10/19 07:30 AMB (Rec: 04/11/19 07:29 AMB [email or web address]) Current Condition History of Current Condition Onset Date 01/09/19 Current Complaints urinary incontinence s/p anterior repair urethral sling History of Current Condition Sherine had been told she had a cystocele years ago, but began to notice more pressure and felt it was painful. She has a history of 4 children all vaginal deliveries with some amount of tearing with her first, she is unsure how much. She is post menopausal now, and denies sexual activity for the past 20 years . 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 She tends to hover on public toilets (including the toilet at work). She had surgery on 01/09/19, and since that time her pain and pressure have improved significanty. She is does feel that it is difficult to fully void now, and has noticed more leaking when she stands up from the toilet. She feels that it takes about 30 seconds to fully void her bladder and that at the end it is a trickle that keeps coming. She does not want to wait a full 30 seconds to void her bladder. Prior Treatments and Tests Prior pessary, then had surgery with Dr. Lopez- anterior vaginal repair with TVT exact retropubic suburethral sling. Treatment Goals Patient/Caregiver Goals Void urine without leaking, be able to exercise without fear of prolapse. Personal Factors Other Personal Factors That May Effect History of back pain Therapy/Recovery PT-OP-C Subjective Start: 04/10/19 06:44 Freq: Status: Active Protocol: Document 05/22/19 07:30 AMB (Rec: 05/22/19 07:48 AMB [id number]) OP-PT Subjective Patient Comments Patient Comments Pt is feeling better now not worried about having worsened her surgery. PT-OP-I Pelvic Floor Start: 04/10/19 06:44 Freq: Status: Active Protocol: Document 04/10/19 07:30 AMB (Rec: 04/10/19 08:47 AMB [email or web address]) Pelvic Floor Assessment Urine Pelvic Floor Surgery Yes Urinary Symptoms Urge Sensation Prolapse Incomplete Emptying Leakage Size Small Other Leakage Causes moving from sit to stand, phyllis after just voiding urine Leaks Per Day 3 Voiding Frequency 5-8 Nocturia 2 Urine Pad Type Panty Liner Pelvic Clock Pelvic Clock 3-6 Tightness Pelvic Clock 6-9 Tightness Pelvic Clock Other Redness at vestibule. Small scar at perineum with tightness and tenderness. No significant tenderness with palpation at obteratur internus or levator ani bilaterally. Prolapse Cystocele Grade 1 Prolapse Comments Difficulty with bearing down. Perineal Descent Resting Absent Contraction Ability Voluntary Contraction Weak Voluntary Relaxation Weak Manual Muscle Testing Left 1 Manual Muscle Testing Right 1 Manual Muscle Testing Anterior 1 Manual Muscle Testing Posterior 3 Comments Pelvic Floor Comments Sherine with an easier time jovan posterior pelvic floor. PT-OP-Q Treatments Start: 04/10/19 06:44 Freq: Status: Active Protocol: Document 05/22/19 07:30 AMB (Rec: 05/22/19 08:26 AMB [id number]) Therapeutic Exercises Sitting Exercises 3 Sitting Exercise Name seated quick flicks/ long holds Comments 10 ea 1 Sitting Exercise Name sitting roll in roll out Resistance #3 band Comments 10 ea Standing Exercises 3 Standing Exercise Name standing mini squats Reps/Minutes 15 2 Standing Exercise Name standing long holds Reps/Minutes 5 ea Comments 5-10 seconds, WBOS, modified tandem 1 Standing Exercise Name standing quick flicks/long holds Comments 10 holds, 5 sec for long holds Therapeutic Activity Therapeutic Activity 1 Name lift training Comments engage pelvic floor, body mechanics to reduce back pain PT-OP-T Assessment and Plan Start: 04/10/19 06:44 Freq: Status: Active Protocol: Document 05/22/19 07:30 AMB (Rec: 05/22/19 08:21 AMB [id number]) Physical Therapy Assessment Assessment Summary Assessment Sherine is doing better this week. Was able to tolerate small squat with good pelvic floor engagement, but full sit to stand was difficult. Physical Therapy Plan Next Visit Focus/Plan Next Note Type Treatment Note Next Visit Plan Progress body mechanics.
--- NOTE | 2019-05-29 17:18 | PT.OTN ---
Current Diagnoses Other female genital prolapse (05/29/19) Unspecified urinary incontinence (05/29/19) Physical Therapy Treatment Note PT-OP-A Visit Information Start: 04/10/19 06:44 Freq: Status: Active Protocol: Document 05/29/19 07:30 AMB (Rec: 05/29/19 07:54 AMB [id number]) Out-Patient Physical Therapy Visit Information Visit Information Visit Type Treatment Note Visit Start Time 07:30 Visit Stop Time 08:15 Total Visit Minutes 45 Visit Number 6 PT-OP-B Current Condition Start: 04/10/19 06:44 Freq: Status: Active Protocol: Document 04/10/19 07:30 AMB (Rec: 04/11/19 07:29 AMB [email or web address]) Current Condition History of Current Condition Onset Date 01/09/19 Current Complaints urinary incontinence s/p anterior repair urethral sling History of Current Condition Sherine had been told she had a cystocele years ago, but began to notice more pressure and felt it was painful. She has a history of 4 children all vaginal deliveries with some amount of tearing with her first, she is unsure how much. She is post menopausal now, and denies sexual activity for the past 20 years . 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 She tends to hover on public toilets (including the toilet at work). She had surgery on 01/09/19, and since that time her pain and pressure have improved significanty. She is does feel that it is difficult to fully void now, and has noticed more leaking when she stands up from the toilet. She feels that it takes about 30 seconds to fully void her bladder and that at the end it is a trickle that keeps coming. She does not want to wait a full 30 seconds to void her bladder. Prior Treatments and Tests Prior pessary, then had surgery with Dr. Lopez- anterior vaginal repair with TVT exact retropubic suburethral sling. Treatment Goals Patient/Caregiver Goals Void urine without leaking, be able to exercise without fear of prolapse. Personal Factors Other Personal Factors That May Effect History of back pain Therapy/Recovery PT-OP-C Subjective Start: 04/10/19 06:44 Freq: Status: Active Protocol: Document 05/29/19 07:30 AMB (Rec: 05/29/19 07:54 AMB [id number]) OP-PT Subjective Patient Comments Patient Comments Pt is feeling stronger, but still struggles with standing. PT-OP-I Pelvic Floor Start: 04/10/19 06:44 Freq: Status: Active Protocol: Document 04/10/19 07:30 AMB (Rec: 04/10/19 08:47 AMB [email or web address]) Pelvic Floor Assessment Urine Pelvic Floor Surgery Yes Urinary Symptoms Urge Sensation Prolapse Incomplete Emptying Leakage Size Small Other Leakage Causes moving from sit to stand, phyllis after just voiding urine Leaks Per Day 3 Voiding Frequency 5-8 Nocturia 2 Urine Pad Type Panty Liner Pelvic Clock Pelvic Clock 3-6 Tightness Pelvic Clock 6-9 Tightness Pelvic Clock Other Redness at vestibule. Small scar at perineum with tightness and tenderness. No significant tenderness with palpation at obteratur internus or levator ani bilaterally. Prolapse Cystocele Grade 1 Prolapse Comments Difficulty with bearing down. Perineal Descent Resting Absent Contraction Ability Voluntary Contraction Weak Voluntary Relaxation Weak Manual Muscle Testing Left 1 Manual Muscle Testing Right 1 Manual Muscle Testing Anterior 1 Manual Muscle Testing Posterior 3 Comments Pelvic Floor Comments Sherine with an easier time jovan posterior pelvic floor. PT-OP-Q Treatments Start: 04/10/19 06:44 Freq: Status: Active Protocol: Document 05/29/19 07:30 AMB (Rec: 05/29/19 07:50 AMB [id number]) Therapeutic Exercises Sitting Exercises 2 Sitting Exercise Name seated on ball 65cm Reps/Minutes 2x10 Comments january, 1 Sitting Exercise Name sitting roll in roll out Resistance #3 band Comments 10 ea Standing Exercises 3 Standing Exercise Name standing mini squats Reps/Minutes 15 2 Standing Exercise Name standing long holds Reps/Minutes 5 ea Comments 5-10 seconds, WBOS, modified tandem 1 Standing Exercise Name standing quick flicks/long holds Comments 10 holds, 5 sec for long holds Other Exercises 1 Other Exercise Name quadruped UE flexion Comments 10, tried LE but irritated hip immediately PT-OP-T Assessment and Plan Start: 04/10/19 06:44 Freq: Status: Active Protocol: Document 05/29/19 07:30 AMB (Rec: 05/29/19 17:15 AMB [email or web address]) Physical Therapy Assessment Assessment Summary Assessment Sherine feels that she is getting stronger in seated, but standing continues to be challenging. Physical Therapy Plan Next Visit Focus/Plan Next Note Type Treatment Note Next Visit Plan Progress standing and quadruped strengthening
--- NOTE | 2019-06-16 16:40 | PT.OTN ---
Current Diagnoses Other female genital prolapse (06/16/19) Unspecified urinary incontinence (06/16/19) Physical Therapy Treatment Note PT-OP-A Visit Information Start: 04/10/19 06:44 Freq: Status: Active Protocol: Document 06/16/19 08:05 AMB (Rec: 06/16/19 08:07 AMB [email or web address]) Out-Patient Physical Therapy Visit Information Visit Information Visit Type Treatment Note Visit Start Time 07:30 Visit Stop Time 08:00 Total Visit Minutes 45 Visit Number 7 PT-OP-B Current Condition Start: 04/10/19 06:44 Freq: Status: Active Protocol: Document 04/10/19 07:30 AMB (Rec: 04/11/19 07:29 AMB [email or web address]) Current Condition History of Current Condition Onset Date 01/09/19 Current Complaints urinary incontinence s/p anterior repair urethral sling History of Current Condition Sherine had been told she had a cystocele years ago, but began to notice more pressure and felt it was painful. She has a history of 4 children all vaginal deliveries with some amount of tearing with her first, she is unsure how much. She is post menopausal now, and denies sexual activity for the past 20 years . 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 She tends to hover on public toilets (including the toilet at work). She had surgery on 01/09/19, and since that time her pain and pressure have improved significanty. She is does feel that it is difficult to fully void now, and has noticed more leaking when she stands up from the toilet. She feels that it takes about 30 seconds to fully void her bladder and that at the end it is a trickle that keeps coming. She does not want to wait a full 30 seconds to void her bladder. Prior Treatments and Tests Prior pessary, then had surgery with Dr. Lopez- anterior vaginal repair with TVT exact retropubic suburethral sling. Treatment Goals Patient/Caregiver Goals Void urine without leaking, be able to exercise without fear of prolapse. Personal Factors Other Personal Factors That May Effect History of back pain Therapy/Recovery PT-OP-C Subjective Start: 04/10/19 06:44 Freq: Status: Active Protocol: Document 06/16/19 08:05 AMB (Rec: 06/16/19 08:07 AMB [email or web address]) OP-PT Subjective Patient Comments Patient Comments Pt is having gallbladder surgery next week and then is starting back PT so this will be her last day of PT. PT-OP-I Pelvic Floor Start: 04/10/19 06:44 Freq: Status: Active Protocol: Document 04/10/19 07:30 AMB (Rec: 04/10/19 08:47 AMB [email or web address]) Pelvic Floor Assessment Urine Pelvic Floor Surgery Yes Urinary Symptoms Urge Sensation Prolapse Incomplete Emptying Leakage Size Small Other Leakage Causes moving from sit to stand, phyllis after just voiding urine Leaks Per Day 3 Voiding Frequency 5-8 Nocturia 2 Urine Pad Type Panty Liner Pelvic Clock Pelvic Clock 3-6 Tightness Pelvic Clock 6-9 Tightness Pelvic Clock Other Redness at vestibule. Small scar at perineum with tightness and tenderness. No significant tenderness with palpation at obteratur internus or levator ani bilaterally. Prolapse Cystocele Grade 1 Prolapse Comments Difficulty with bearing down. Perineal Descent Resting Absent Contraction Ability Voluntary Contraction Weak Voluntary Relaxation Weak Manual Muscle Testing Left 1 Manual Muscle Testing Right 1 Manual Muscle Testing Anterior 1 Manual Muscle Testing Posterior 3 Comments Pelvic Floor Comments Sherine with an easier time jovan posterior pelvic floor. PT-OP-Q Treatments Start: 04/10/19 06:44 Freq: Status: Active Protocol: Document 06/16/19 07:30 AMB (Rec: 06/16/19 16:35 AMB [email or web address]) Therapeutic Exercises Supine Exercises 2 Supine Exercise Name march with TrA and PF Reps/Minutes 10 1 Supine Exercise Name quick flicks/long holds Comments with legs elevated on bolsters , educated in breathing, pf contract for lift Standing Exercises 3 Standing Exercise Name standing mini squats Reps/Minutes 15 2 Standing Exercise Name standing long holds Reps/Minutes 5 ea Comments 5-10 seconds, WBOS, modified tandem 1 Standing Exercise Name standing quick flicks/long holds Comments 10 holds, 5 sec for long holds Neuro Re-Education Treatment Other Activities 1 Details sEMG for quick PT-OP-T Assessment and Plan Start: 04/10/19 06:44 Freq: Status: Active Protocol: Document 06/16/19 07:35 AMB (Rec: 06/16/19 07:50 AMB [id number]) Physical Therapy Assessment Goals Two Impairment incontinence Short Term Goal (STG) Sherine will fully void her bladder so that she does not leak upon standing from the toilet. STG Duration MET Neon Sign Mechanic Goal (LTG) Sherine will walk to the toilet calmly without leaking, and fully relax her pelvic floor before voiding urine. LTG Duration MET One Impairment pelvic floor strength Short Term Goal (STG) Sherine will improve her pelvic floor strength to at least 3/ 5 in all planes. STG Duration 4 weeks Alf Goal (LTG) Sherine will perform a pelvic floor contraction in standing so that she can safely lift 20 pounds. LTG Duration PARTIALLY MET Assessment Summary Assessment Most goal met, pt feels ready to independently manage her condition and will be attending PT closer to home for her back. Encouraged her to continue jovan pelvic floor while doing core stability with next PT. Overall feels better. Physical Therapy Plan Discharge Physical Therapy Discharge Reasons Goals Met
== END 2019-06-21 15:04 | disposition home or self-care (01) ==
LOC: PHYS 07:30
PROVIDERS: PCP Family Medicine; Visit Provider Specialist
DX: R32 Unspecified urinary incontinence (principal); N81.89 Other female genital prolapse
CPT/HCPCS: 97110; 97112; 97161; 97530